=== PATIENT | female | born 1950 | race Caucasian/White ===

== ENCOUNTER 2021-12-10 22:52 | Inpatient (IN) | payer OTHER, BC ==
[~2021-12-10] VITALS: Ht 154.9 cm; Wt 79.8 kg
[2021-12-10 22:57] VITALS: BP_SYST 116
[2021-12-10] MEDS ORDERED: LORazepam 2 MG/ML VIAL IVP ONE (23:00)
--- NOTE | 2021-12-10 23:00 | NUR ---
Placed in room 5 . Placed on pathology transcriptionist, blood pressure machine and pulse oximeter. To gown for exam. Side rails up. Report given to Ivet Chand(reg).
--- NOTE | 2021-12-10 23:01 | NUR ---
JOBY Plascencia at bedside examining patient.
--- NOTE | 2021-12-10 23:08 | NUR ---
Blood for labwork drawn BY INSPECTOR [employer]. Patient tolerated.
--- NOTE | 2021-12-10 23:15 | NUR ---
PT IS A 71Y.O. FEMALE BIBA FROM [facility]. PT IS AWAKE, AGITATED YELLING UPON ARRIVAL. CONFUSED. APPROACHED PT IN A POSITIVE AND CALM MANNER BUT PT STILL AGITATED. ADMINISTERED DUE MED ORDERED, EFFECTED. W/ GIGI SINGLE LUMEN PICC LINE. SAFE & HAZARD FREE ENVIRONMENT PROVIDED. WILL CON'T TO MONITOR.
--- NOTE | 2021-12-10 23:20 | NUR ---
EKG performed at by JOBY CARNEY. Physician given copy of EKG for review.
[2021-12-10 23:34] LABS: BASOPHILS % (AUTO) 0.7 % (0.0-2.0); EOSINOPHILS % (AUTO) 0.5 % (0.0-4.0); HEMATOCRIT 26.7 % (36-48); HEMOGLOBIN 9.3 g/dL (12.0-16.0); LYMPHOCYTES # (AUTO) 0.7 K/uL (1.0-5.5); LYMPHOCYTES % (AUTO) 11.8 % (20.5-51.5); MEAN CORPUSCULAR HEMOGLOBIN 30 pg (27-31); MEAN CORPUSCULAR HGB CONC 35 % (32-36); MEAN CORPUSCULAR VOLUME 86 fL (79.0-98.0); MONOCYTES # (AUTO) 0.5 K/uL (0.0-1.0); MONOCYTES % (AUTO) 8.9 % (1.7-9.3); NEUTROPHILS # (AUTO) 4.4 K/uL (1.8-7.7); NEUTROPHILS % (AUTO) 78.1 % (40.0-70.0); PLATELET COUNT (AUTO) 214 K/uL (130-430); RED BLOOD CELL COUNT(AUTO) 3.11 MIL/uL (4.2-6.2); RED CELL DISTRIBUTION WIDTH 13.5 % (9.0-15.0); WHITE BLOOD COUNT (AUTO) 5.6 K/uL (4.8-10.8)
[2021-12-10 23:41] LABS: ANION GAP 12 (5-15); CALCIUM 10.2 mg/dL (8.4-11.0); CHLORIDE 97 mmol/L (98-107); CREATININE 2.02 mg/dL (0.55-1.30); GFR AFRICAN AMERICAN 31 mL/min (>90); GLUCOSE 172 mg/dL (70-99); POTASSIUM 4.2 mmol/L (3.5-5.1); UREA NITROGEN, BLOOD 32 mg/dL (8-21)
[2021-12-10 23:46] LABS: INR 1.1 (0.8-1.2); PROTHROMBIN TIME 11.8 SECS (9.5-12.5)
[2021-12-10 23:50] LABS: ALANINE AMINOTRANSFERASE 12 U/L (12-78); ALBUMIN 3.1 g/dL (3.4-4.8); ASPARTATE AMINOTRANSFERASE 23 U/L (10-37); TOTAL BILIRUBIN 0.6 mg/dL (0.0-1.0)
[2021-12-10 23:51] LABS: ACETAMINOPHEN < 1 ug/mL (1-30); ALCOHOL, BLOOD < 3 mg/dL (<10)
[2021-12-11] MEDS ORDERED: LORazepam 2 MG/ML VIAL IVP ONE ×2 (00:30→06:15)
[2021-12-11] MEDS ORDERED: NACL 0.9% 1,000 ML IV ONE ×2 (01:15→07:15)
--- NOTE | 2021-12-11 01:19 | NUR ---
Urine specimen collected and SENT TO LAB
[2021-12-11 01:40] LABS: BARBITURATE, URINE NEGATIVE (NEG <=200); BENZODIAZEPINE, URINE POSITIVE (NEG <=150); CANNABINOID, URINE NEGATIVE (NEG <=50); COCAINE, URINE NEGATIVE (NEG <=150); METHAMPHETAMINES SCREEN,URINE NEGATIVE (NEG <=500); OPIATE, URINE POSITIVE (NEG <=100); PHENCYCLIDINE SCREEN,URINE NEGATIVE (NEG <=25); UR TRICYCLIC ANTIDEPRESSANTS NEGATIVE (NEG <=300); URINE AMPHETAMINE NEGATIVE (NEG <=500); URINE METHADONE NEGATIVE (NEG <=200); URINE OXYCODONE SCREEN NEGATIVE (NEG <=100); URINE PROPOXYPHENE SCREEN NEGATIVE (NEG <=300)
--- NOTE | 2021-12-11 03:21 | NUR ---
PLS NOTIFY SHARATH DAUGHTER [phone] PER NEHEMIAH SALEEM [facility].
--- NOTE | 2021-12-11 03:46 | NUR ---
COVID/MRSA SWAB SENT TO LAB.
[2021-12-11] MEDS ORDERED: HYG25 PO (04:03)
[2021-12-11] MEDS ORDERED: CLON0.5T4 PO (04:03)
[2021-12-11] MEDS ORDERED: CLON-433 PO (04:03)
[2021-12-11] MEDS ORDERED: DOCU-144 PO (04:03)
[2021-12-11] MEDS ORDERED: NOR10 PO (04:03)
[2021-12-11] MEDS ORDERED: CARV25TA55 PO (04:03)
[2021-12-11] MEDS ORDERED: FERR-69 PO (04:03)
[2021-12-11] MEDS ORDERED: BUSP10TA3 PO (04:03)
[2021-12-11] MEDS ORDERED: ALPR0.5T PO (04:03)
[2021-12-11 04:40] LABS: BILIRUBIN,URINE NEGATIVE (NEGATIVE); BLOOD, URINE NEGATIVE (NEGATIVE); CLARITY/URINE CLEAR (CLEAR); GLUCOSE,URINE NEGATIVE (NEGATIVE); KETONES,URINE NEGATIVE (NEGATIVE); LEUKOCYTE ESTERASE ,URINE 1+ (NEGATIVE); NITRITE, URINE POSITIVE (NEGATIVE); PH,URINE 5.5 (5.0-8.0); PROTEIN URINE 2+ (NEGATIVE); UROBILINOGEN,URINE 0.2 (0.2-1.0)
[2021-12-11 04:42] LABS: COLOR,URINE AMBER (YELLOW)
[2021-12-11] MEDS ORDERED: GENTAMICIN 120 mg/100 mL NS 100 ML IV ONE (04:45)
[2021-12-11 05:11] LABS: BACTERIA,URINE RARE /HPF (None Seen); RBC,URINE 0-3 /HPF (0-3)
--- NOTE | 2021-12-11 05:39 | NUR ---
PT COMFORTABLY SLEEPING IN BED. SAFE & HAZARD FREE ENVIRONMENT PROVIDED. ALL FALL PRECAUTIONS IMPLEMENTED. ABLE TO TURN PT SIDE TO SIDE.
[2021-12-11] MEDS ORDERED: LORazepam 2 MG/ML VIAL ONE (06:12)
--- NOTE | 2021-12-11 06:24 | NUR ---
INCONTINENCE CARE PROVIDED.
--- NOTE | 2021-12-11 07:12 | NUR ---
REPORT GIVEN TO FRANCIS GRIMALDO
--- NOTE | 2021-12-11 07:13 | NUR ---
REPORT RECEIVED, CARE ASSUMED, PT ASSESSED
--- NOTE | 2021-12-11 07:21 | NUR ---
Admit bed requested Patient will be admitted to care of . Admitted to TELE unit. Diagnosis UTI Inpatient (Yes Observation No) Orientation concerns or request close to nursing station No) Covid Status NEG On vent or bipap NO Isolation requirements NO Needs a sitter NO From Home (Yes or if No enter name of facility) [facility] Requires Dialysis (Yes or No) NO Med Rec Completed (Yes of No) NO
--- NOTE | 2021-12-11 09:18 | NUR ---
PT SLEEPING INTERMITTENTLY, RESTLESS IN BED, DIFF WITH REDIRECTION, PT CONFUSED, RESP EASY, MM PINK, PT HAD APPARENTLY PULLED OUT ALBERTS CATH, NO OBVIOUS INJURY NO BLEEDING.
--- NOTE | 2021-12-11 09:40 | NUR ---
Patient will be admitted to care of DR VILLASEÑOR. Admitted to unit TELE. Will go to room 119. Belongings list completed. Complete and up to date summary report printed. SBAR report to be given at bedside with opportunity for questions TO GAMALIEL BLANCO.
--- NOTE | 2021-12-11 09:55 | NUR ---
Paged: Patient very agitated and combative,with orders give Haldol 3mg im once.Informed primary nurse Roshan.
[2021-12-11] MEDS ORDERED: HALOPERIDOL LACTATE 5 MG/ML VIAL IM ONE ×2 (10:00→20:15)
[2021-12-11] MEDS ORDERED: HALOPERIDOL LACTATE 5 MG/ML VIAL ONE (10:03)
--- NOTE | 2021-12-11 10:08 | NUR ---
HIGH ALERT NOTE: Called Dr. Marie back at his identified within the medical roster to verify physician authenticity.
[2021-12-11] MEDS ORDERED: DOCUSATE SODIUM 100 MG CAPSULE PO ONE (10:30)
[2021-12-11] MEDS ORDERED: DOCUSATE SODIUM 100 MG CAPSULE PO SCH (10:30)
[2021-12-11] MEDS ORDERED: busPIRone HCL 5 MG TABLET PO PRN (10:30)
[2021-12-11] MEDS ORDERED: ALPRAZolam 0.25 MG TABLET PO PRN (10:30)
--- NOTE | 2021-12-11 10:38 | NUR ---
CONSULTATION: REASON FOR CONSULT: DELIRIUM CONSULTING PHYSICIAN: TRUMAN LAZCANO ORDERED BY: ETIENNE SPOKE WITH SALLIE [phone]
[2021-12-11] MEDS ORDERED: clonazePAM 0.5 MG TABLET PO ONE (11:15)
[2021-12-11] MEDS ORDERED: CARVEDILOL 25 MG TABLET (COREG) PO ONE (11:15)
--- NOTE | 2021-12-11 11:15 | NUR ---
CONSULTATION: REASON FOR CONSULT: UTI CONSULTING PHYSICIAN: YAMINI ORDERED BY: ETIENNE SPOKE WITH NIKO [phone]
--- NOTE | 2021-12-11 11:17 | NUR ---
CONSULTATION: REASON FOR CONSULT: UTI CONSULTING PHYSICIAN: MATTHEW ORDERED BY: ETIENNE SPOKE WITH TARIQ [phone]
[2021-12-11 11:30] VITALS: BP_SYST 138
[2021-12-11 12:20] VITALS: BP_SYST 178
[2021-12-11] MEDS ORDERED: VANCOMYCIN HCL 1,000 MG in NS 250 ML IV ONE (14:00)
[2021-12-11] MEDS ORDERED: cloNIDine HCL 0.1 MG TABLET PO SCH (15:00)
[2021-12-11] MEDS: KCL 20 mEq in 0.45% NS 1000 mL 1,000 ML IV SCH (16:07)
[2021-12-11] MEDS: CEFEPIME 2 GM in D5W 100 ML IV SCH (16:09)
[2021-12-11 17:05] VITALS: BP_SYST 172
[2021-12-11] MEDS: FERROUS SULFATE 325 MG TABLET.DR PO SCH (18:00)
[2021-12-11 20:00] VITALS: BP_SYST 145
--- NOTE | 2021-12-11 20:17 | NUR ---
Patient extremely anxious, kicking staff when approaching bed yelling "I don't want it". Refsing to take PO medicatinos. Called Dr Marie, orders received.
[2021-12-11] MEDS: clonazePAM 0.5 MG TABLET PO SCH (21:00)
[2021-12-11] MEDS: DOCUSATE SODIUM 100 MG CAPSULE PO SCH (21:00)
[2021-12-11] MEDS: CARVEDILOL 25 MG TABLET (COREG) PO SCH (21:00)
[2021-12-11] MEDS: ENOXAPARIN SODIUM 30 MG/0.3 ML SYRINGE SUBCUT SCH (21:53)
[2021-12-12] VITALS: BP_SYST 189
--- NOTE | 2021-12-12 00:10 | NUR ---
Patient's BP 189/101, dr reese notified and notified of patients continued agitation and restlessness. Orders received (haldol, hydralizine)
[2021-12-12 01:00] VITALS: BP_SYST 143
[2021-12-12] MEDS ORDERED: HALOPERIDOL LACTATE 5 MG/ML VIAL IM ONE (01:00)
[2021-12-12] MEDS: hydrALAZINE HCL 20 MG/ML VIAL IVP PRN (01:34)
[2021-12-12] MEDS: KCL 20 mEq in 0.45% NS 1000 mL 1,000 ML IV SCH ×2 (01:37→10:58)
[2021-12-12 04:00] VITALS: BP_SYST 151
[2021-12-12 06:43] LABS: BASOPHILS # (AUTO) 0.1 K/uL (0.0-0.2); BASOPHILS % (AUTO) 0.9 % (0.0-2.0); EOSINOPHILS % (AUTO) 0.1 % (0.0-4.0); HEMATOCRIT 27.7 % (36-48); HEMOGLOBIN 9.7 g/dL (12.0-16.0); LYMPHOCYTES # (AUTO) 0.7 K/uL (1.0-5.5); LYMPHOCYTES % (AUTO) 10.6 % (20.5-51.5); MEAN CORPUSCULAR HEMOGLOBIN 30 pg (27-31); MEAN CORPUSCULAR HGB CONC 35 % (32-36); MEAN CORPUSCULAR VOLUME 85 fL (79.0-98.0); MONOCYTES # (AUTO) 0.4 K/uL (0.0-1.0); MONOCYTES % (AUTO) 6.6 % (1.7-9.3); NEUTROPHILS # (AUTO) 5.5 K/uL (1.8-7.7); NEUTROPHILS % (AUTO) 81.8 % (40.0-70.0); PLATELET COUNT (AUTO) 225 K/uL (130-430); RED BLOOD CELL COUNT(AUTO) 3.26 MIL/uL (4.2-6.2); RED CELL DISTRIBUTION WIDTH 13.2 % (9.0-15.0); WHITE BLOOD COUNT (AUTO) 6.8 K/uL (4.8-10.8)
[2021-12-12 07:01] LABS: CALCIUM 9.5 mg/dL (8.4-11.0); CREATININE 1.59 mg/dL (0.55-1.30); VANCOMYCIN,RANDOM 11.9 ug/mL
--- NOTE | 2021-12-12 07:20 | NUR ---
sITTER CAME OUT OF ROOM TO ALERT PATIENT APPEARED TO BE SEIZING. rAPid response called and ER MD on site to assess. Ativan ordered as pupils large but equal and patient actively seizing. Seizing appeared to be resolved as Ativan was administered. Patient placed on O2 for support. Endorsed to oncoming RN.
[2021-12-12] MEDS ORDERED: LORazepam 2 MG/ML VIAL ONE (07:35)
--- NOTE | 2021-12-12 07:45 | NUR ---
INITIAL ROUNDS Received pt resting quietly in bed with no s/s resp distress, no s/s seizure activity, no s/s pain or discomfort. IVF infusing well at ordered rate with no s/s infiltration to site. HOB elevated for aspiration precautions. Pt repositioned with pillow support and heels off-loaded for skin care and comfort. Noted dressing to left great toe clean, dry and intact. Sitter at bedside. Seizure precautions in place. Side rails up x3, bed alarm on for safety.
[2021-12-12] MEDS: FERROUS SULFATE 325 MG TABLET.DR PO SCH ×2 (08:00→18:00)
[2021-12-12 08:54] LABS: BASOPHILS % (AUTO) 0.4 % (0.0-2.0); HEMATOCRIT 28.8 % (36-48); HEMOGLOBIN 9.9 g/dL (12.0-16.0); LYMPHOCYTES # (AUTO) 0.4 K/uL (1.0-5.5); LYMPHOCYTES % (AUTO) 4.9 % (20.5-51.5); MEAN CORPUSCULAR HEMOGLOBIN 30 pg (27-31); MEAN CORPUSCULAR HGB CONC 34 % (32-36); MEAN CORPUSCULAR VOLUME 86 fL (79.0-98.0); MONOCYTES # (AUTO) 0.3 K/uL (0.0-1.0); MONOCYTES % (AUTO) 3.7 % (1.7-9.3); PLATELET COUNT (AUTO) 216 K/uL (130-430); RED BLOOD CELL COUNT(AUTO) 3.34 MIL/uL (4.2-6.2); RED CELL DISTRIBUTION WIDTH 13.2 % (9.0-15.0); WHITE BLOOD COUNT (AUTO) 7.7 K/uL (4.8-10.8)
[2021-12-12] MEDS: clonazePAM 0.5 MG TABLET PO SCH (09:00)
[2021-12-12] MEDS: DOCUSATE SODIUM 100 MG CAPSULE PO SCH ×2 (09:00→21:00)
[2021-12-12] MEDS: CARVEDILOL 25 MG TABLET (COREG) PO SCH ×2 (09:00→21:00)
[2021-12-12 09:15] LABS: CALCIUM 9.5 mg/dL (8.4-11.0); CREATININE 1.85 mg/dL (0.55-1.30); POTASSIUM 3.8 mmol/L (3.5-5.1)
[2021-12-12 09:20] LABS: ALBUMIN 2.8 g/dL (3.4-4.8); TOTAL BILIRUBIN 0.6 mg/dL (0.0-1.0)
--- NOTE | 2021-12-12 09:20 | NUR ---
CONSULT NEUROLOGY NEW SEIZURES CAROLYN DOMINGUEZ SENT TEXT MESSAGE TO DR LOW
[2021-12-12 09:23] LABS: INR 1.3 (0.8-1.2); PROTHROMBIN TIME 13.3 SECS (9.5-12.5)
[2021-12-12] MEDS: LORazepam 2 MG/ML VIAL IVP PRN (09:56)
[2021-12-12 12:04] VITALS: BP_SYST 159
[2021-12-12] MEDS: CEFEPIME 2 GM in D5W 100 ML IV SCH (12:38)
[2021-12-12] MEDS ORDERED: VANCOMYCIN HCL 750 MG in NS 250 ML IV SCH (14:00)
[2021-12-12 15:37] VITALS: BP_SYST 143
--- NOTE | 2021-12-12 19:15 | NUR ---
OPENING NOTE REPORT RECEIVED FROM DAYSHIFT NURSE. PATIENT RECEIVED LYING IN BED, EYES CLOSED. NO S/S OF ACUTE DISTRESS. BREATHING EVEN AND UNLABORED. HOB RAISED. IVF INFUSING WELL. ALBERTS ATTACHED, SECURED, AND DRAINING BY GRAVITY. SITTER AT BEDSIDE. WILL CONTINUE TO MONITOR.
--- NOTE | 2021-12-12 19:30 | NUR ---
CLOSING NOTE Pt resting in bed with no s/s resp distress, no s/s seizure activity, no s/s pain or discomfort. IVF infusing well to GIGI at ordered rate with no s/s infiltration to site. Dr. Marie here and informed that pt was unable to eat today due to confusion and biting down on the spoon-he stated he may order PPN. Dr. Marie wants to keep sitter for now. Sitter at bedside. HOB elevated for aspiration precautions. Side rails up, bed alarm on for safety.
--- NOTE | 2021-12-12 19:48 | NUR ---
TRANSFER CARE REPORT GIVEN TO DAVON. TRANSFER CARE DONE AT THIS TIME.
--- NOTE | 2021-12-12 19:48 | NUR ---
PAGED DR VILLASEÑOR AT THIS TIME
[2021-12-12 20:00] VITALS: BP_SYST 160
--- NOTE | 2021-12-12 20:02 | NUR ---
2ND PAGE FOR DR VILLASEÑOR
[2021-12-12] MEDS ORDERED: levETIRAcetam 500 MG TABLET PO SCH (21:00)
[2021-12-12] MEDS: levETIRAcetam 500 MG in NS 100 ML IV SCH (21:21)
[2021-12-12] MEDS: ENOXAPARIN SODIUM 30 MG/0.3 ML SYRINGE SUBCUT SCH (21:22)
[2021-12-13] VITALS (7 sets, daily range): BP systolic 124–180
[2021-12-13] MEDS: KCL 20 mEq in 0.45% NS 1000 mL 1,000 ML IV SCH ×3 (01:32→22:35)
[2021-12-13] MEDS ORDERED: ACETAMINOPHEN 650 MG SUPP.RECT RC PRN (02:00)
[2021-12-13 07:20] LABS: BASOPHILS # (AUTO) 0.1 K/uL (0.0-0.2); BASOPHILS % (AUTO) 0.8 % (0.0-2.0); HEMATOCRIT 27.1 % (36-48); HEMOGLOBIN 9.4 g/dL (12.0-16.0); LYMPHOCYTES % (AUTO) 14.7 % (20.5-51.5); MEAN CORPUSCULAR HEMOGLOBIN 30 pg (27-31); MEAN CORPUSCULAR HGB CONC 35 % (32-36); MEAN CORPUSCULAR VOLUME 86 fL (79.0-98.0); MONOCYTES # (AUTO) 0.9 K/uL (0.0-1.0); MONOCYTES % (AUTO) 12.8 % (1.7-9.3); NEUTROPHILS % (AUTO) 71.7 % (40.0-70.0); PLATELET COUNT (AUTO) 208 K/uL (130-430); RED BLOOD CELL COUNT(AUTO) 3.15 MIL/uL (4.2-6.2); RED CELL DISTRIBUTION WIDTH 13.2 % (9.0-15.0)
--- NOTE | 2021-12-13 07:53 | NUR ---
INITIAL ROUNDS Received pt resting quietly in bed with no s/s resp distress, no s/s seizure activity, no s/s pain or discomfort. IVF infusing well at ordered rate with no s/s infiltration to GIGI. Pt remains non-verbal today-not even mumbling this morning. HOB elevated for aspiration precautions. Pt repositioned with pillow support and heels off-loaded for skin care and comfort. Noted dressing to left great toe clean, dry and intact. Sitter at bedside. Seizure precautions in place. Side rails up x3, bed alarm on for safety. Addendum: 12/13/21 at 1026 by Briseida Metcalf RN O2 via NC removed to assess SAO2 on room air-pt placed on O2 on 12/12/21 post rapid response, pt not usually on oxygen.
[2021-12-13] MEDS: FERROUS SULFATE 325 MG TABLET.DR PO SCH ×2 (08:00→18:00)
[2021-12-13] MEDS: hydrALAZINE HCL 20 MG/ML VIAL IVP PRN (08:00)
--- NOTE | 2021-12-13 08:00 | NUR ---
ELEVATED BP/HR Pt's BP 178/107, HR 131-pt given Apresoline 10 mg IVP as ordered fro SBP > 160. Will recheck BP/HR.
[2021-12-13] MEDS: levETIRAcetam 500 MG in NS 100 ML IV SCH ×2 (08:03→22:28)
[2021-12-13] MEDS: DOCUSATE SODIUM 100 MG CAPSULE PO SCH ×2 (08:08→21:00)
[2021-12-13] MEDS: CARVEDILOL 25 MG TABLET (COREG) PO SCH ×2 (08:08→21:00)
[2021-12-13] MEDS ORDERED: *PPN PER PHARMACY XX PRN (08:30)
[2021-12-13 08:43] LABS: ALBUMIN 2.6 g/dL (3.4-4.8); CALCIUM 9.4 mg/dL (8.4-11.0); CREATININE 2.15 mg/dL (0.55-1.30); POTASSIUM 3.9 mmol/L (3.5-5.1); TOTAL BILIRUBIN 0.4 mg/dL (0.0-1.0)
--- NOTE | 2021-12-13 08:53 | NUR ---
CONSULTATION PAGED/CALLED Reason for Consultation: [] uncontrolled afib Person Who was Notified: [] STEWART Ruggiero from [facility] Consulting Physician: [] DR MCDONALD Management Department Chair Specialty: [] CARDIO Ordering Physician: [] DR CASTRO
--- NOTE | 2021-12-13 08:55 | NUR ---
BP RECHECK Rechecked pt's blood pressure and now BP 124/77, HR 105, SAO2 97% on room air.
--- NOTE | 2021-12-13 08:56 | NUR ---
OXYGEN RECHECK Pt's SAO2 97% on room air with no s/s resp distress.
--- NOTE | 2021-12-13 09:30 | NUR ---
ADJUNCT PSYCHOLOGY PROFESSOR ACSW Jie responded to a request for Social Service support from Director of Case Management Deisy and assigned FRANCIS Goins to address physician request for psych eval. ACSW attempted to engage patient at bedside. Patient was unable to have meaningful participation in Social Work contact, mental status assessment or biopsychosocial assessment can not be completed at this time. As requested by Dr. Marie, ACSW contacted Dr. Ascencio to request psych eval. ACSW also provided him brief description of patient's condition including history of dementia. ACSW provided update to FRANCIS Goins ACSW will continue to be available as needed
[2021-12-13] MEDS ORDERED: METOPROLOL TARTRATE 5 MG/5 ML VIAL IVP PRN (09:45)
[2021-12-13 10:31] LABS: PHOSPHORUS 2.6 mg/dL (2.7-4.5)
--- NOTE | 2021-12-13 13:29 | NUR ---
DRESSING CHANGE Left great toe area cleansed with normal saline, covered with a foam dressing. Healing scab to incision site of great toe amputation. Area pink/dark red, no drainage, no odor. Heel off-loaded for skin care and comfort. Pt tolerated well.
--- NOTE | 2021-12-13 19:10 | NUR ---
Dietitian Recommendations * [facility] diet, Glucerna TID (supplements yield 660kcal/day, 30g protein/day) * Consider Renal if BUN/CRE ratio elevated * Consider Cardiac if Na levels or TG elevated * Consider long-term EN support if 0% oral intake persists Please refer to nutrition assessment for details, thanks! CC, MPH, RDN
--- NOTE | 2021-12-13 19:49 | NUR ---
CLOSING NOTE Pt resting in bed with no s/s resp distress, no s/s seizure activity, no s/s pain or discomfort. IVF infusing well to GIGI at ordered rate with no s/s infiltration to site. Attempted to feed pt earlier but would not open her mouth-kept pt NPO for safety. Sitter at bedside. HOB elevated for aspiration precautions. Side rails up, bed alarm on for safety.
[2021-12-13] MEDS ORDERED: TPN PERIPHERAL 0.0001 ML, SODIUM ACETATE 40 MEQ, POTASSIUM CHLORIDE 20 MEQ, K PHOS 9 MM... IV SCH ×9 (21:00)
--- NOTE | 2021-12-13 21:40 | NUR ---
HIGH ALERT NOTE: Called Dr. MCDONALD regarding pt's HR 130 and BP 180/109. Called back at identified within the medical roster to verify physician authenticity.
[2021-12-13] MEDS: ENOXAPARIN SODIUM 30 MG/0.3 ML SYRINGE SUBCUT SCH (22:24)
[2021-12-13] MEDS: CEFTAROLINE FOSAMIL ACETATE 400 MG in NS 250 ML IV SCH (22:32)
[2021-12-14] VITALS: BP_SYST 154
[2021-12-14 01:35] LABS: BASOPHILS # (AUTO) 0.1 K/uL (0.0-0.2); EOSINOPHILS % (AUTO) 0.4 % (0.0-4.0); HEMOGLOBIN 8.6 g/dL (12.0-16.0); LYMPHOCYTES # (AUTO) 1.2 K/uL (1.0-5.5); LYMPHOCYTES % (AUTO) 17.2 % (20.5-51.5); MEAN CORPUSCULAR HEMOGLOBIN 30 pg (27-31); MEAN CORPUSCULAR HGB CONC 35 % (32-36); MEAN CORPUSCULAR VOLUME 87 fL (79.0-98.0); MONOCYTES # (AUTO) 0.9 K/uL (0.0-1.0); MONOCYTES % (AUTO) 13.1 % (1.7-9.3); NEUTROPHILS # (AUTO) 4.6 K/uL (1.8-7.7); NEUTROPHILS % (AUTO) 68.3 % (40.0-70.0); PLATELET COUNT (AUTO) 189 K/uL (130-430); RED BLOOD CELL COUNT(AUTO) 2.88 MIL/uL (4.2-6.2); RED CELL DISTRIBUTION WIDTH 13.3 % (9.0-15.0); WHITE BLOOD COUNT (AUTO) 6.7 K/uL (4.8-10.8)
[2021-12-14 01:56] LABS: ALBUMIN 2.3 g/dL (3.4-4.8); CREATININE 1.7 mg/dL (0.55-1.30); PHOSPHORUS 2.4 mg/dL (2.7-4.5); POTASSIUM 3.9 mmol/L (3.5-5.1); TOTAL BILIRUBIN 0.3 mg/dL (0.0-1.0)
[2021-12-14 08:00] VITALS: BP_SYST 144
[2021-12-14] MEDS: FERROUS SULFATE 325 MG TABLET.DR PO SCH ×2 (08:00→12:21)
--- NOTE | 2021-12-14 08:13 | NUR ---
CONSULTATION PAGED0= REASON FOR CONSULTATION:DELIRIUM WAS CONSULT CALLED?Y PERSON WHO WAS NOTIFIED:SKY CONSULTING PHYSICIAN:TRUMAN LOPEZ SCRUM COACH SPECIALTY:PSYCHE SCRUM COACH PHONE NUMBER:[phone] REQUESTING PHYSICIAN:BLACK HAAS
--- NOTE | 2021-12-14 08:15 | NUR ---
TEFLARO IV ANTIBIOTIC NOT ADMINISTERED First dose of Teflaro (ceftaroline) IV antibiotic was due at 2100 on 12/13/21. It was NOT administered d/t concerns of patients history of allergic reaction to cephalexin. Both antibiotics are cephalosporins. *Additionally, CEFTAROLINE's side effects and conditions to be reported to MD when considering this antibiotic were too many to overlook. SIDE EFFECTS/PREEXISTING CONDITIONS: SEIZURES (HAD SEIZURE CKD (BUN 26/CREATININE 1.7), IRREGULAR HR (PT AFIB W/ HR SUSTAINING LOW BLOOD COUNT (PT HAS CHRONIC ANEMIA LOW POTASSIUM, CONFUSION,
[2021-12-14] MEDS: DOCUSATE SODIUM 100 MG CAPSULE PO SCH (09:00)
[2021-12-14] MEDS: levETIRAcetam 500 MG in NS 100 ML IV SCH ×2 (09:00→21:59)
[2021-12-14] MEDS: CARVEDILOL 25 MG TABLET (COREG) PO SCH ×2 (09:00→22:04)
[2021-12-14] MEDS: CEFTAROLINE FOSAMIL ACETATE 400 MG in NS 250 ML IV SCH ×2 (11:07→22:02)
[2021-12-14] MEDS: KCL 20 mEq in 0.45% NS 1000 mL 1,000 ML IV SCH ×2 (11:45→22:05)
[2021-12-14 12:34] VITALS: BP_SYST 128
--- NOTE | 2021-12-14 12:45 | NUR ---
Nutrition F/U Admitting Diagnosis UTI Reviewed Pertinent Medical/Surgical Hx Medical Record Patient Primary RN Medical History Comment: PMH: HTN, dementia, L foot osteomyelitis, T2DM, CKD Stg IV w/o CRRT, GERD, esophagitis, general anxiety, and seizure disorder per physician notes Per EMR review 12/14: pt also found w/ ALOC, etiology uncertain, may be r/t meds, catatonia Subjective Information: RD spoke w/ pt's primary RN this afternoon. She reported that pt appears to be high aspiration precaution d/t ALOC and has not eaten today. She also reported that pt has a psych consult and may need a swallow eval as well. Per EMR review, pt continues w/ negligible PO intakes; no BM noted yet; pt started PPN support last night; non-verbal. RD visited pt at bedside. No family present. PPN seen infusing at 42 ml/hr w/ plan to advance to 50 ml/hr per EMR review. Pt is not yet meeting optimal nutritional needs. Current Diet Order/Nutrition Support: CCHO x3 days & PPN D20%, AA8.5% at 50 ml/hr via peripheral line Patient/Significant Other Unable To Verbalize Education Provided Not Indicated Pertinent Medications: lopressor, lovenox Pertinent Labs: Na 135 L, BG 191 H, BUN 26 H, CRE 1.7 H, eGFR 32 L, TG 155 H, WBC 6.7 WNL Height (Feet) 5 feet Height (Inches) 1.00 inches Weight (Pounds) 176 pounds -- stable since 12/13 Patient Weight 79.832 kg Body Mass Index 33.25 kg/m2 %IBW 168 [place]/Adjusted Body Weight 105lbs/47.7kg IBW. Weight Status Obese Gastrointestinal Symptoms None Skin Integrity Comment: Mike Score: 11 -- L big toe amputation/incision per EMR review Current % PO Negligible <25% Estimated Energy Expenditure (kcals/day) 6765-6101 (25-30kcal/kg IBW d/t obesity, GERIAT maintenance) NEW Estimated Protein Required (g/day) 38-57 (0.8-1.2 g/kg IBW d/t obesity, CKD Stage 4 no CRRT) Estimated Fluid Required (l/day) Defer to MD d/t CKD Stage 4 Problem/Etiology/Signs/Symptoms Inadequate oral intake R/T suspected self-feeding difficulty d/t mental status AEB average PO intake of 0%. *Ongoing Expected Outcomes/Goals Monitor appetite and PO intakes w/ goal of meeting >50 estimated nutritional needs, labs trending WNL, normal GI function, and skin integrity/wt maintenance. Dietitian Recommendations * PPN D20%, AA8.5% at 65 ml/hr (goal), IL20% at 5 ml/hr via peripheral line Provides: 1036 kcal/day, 66 gm protein/day, 1680 ml total volume/day, and GIR: 1.4 gm CHO/kg/min Meets: 87% of lower end of estimated caloric needs and 116% of upper end of estimated protein needs * Consider ST swallow eval and NPO status * Consider need for long-term EN if PO intake continues not indicated Follow Up High Risk: F/U in 2-3 days
--- NOTE | 2021-12-14 12:50 | NUR ---
Dietitian Recommendations * PPN D20%, AA8.5% at 65 ml/hr (goal), IL20% at 5 ml/hr via peripheral line Provides: 1036 kcal/day, 66 gm protein/day, 1680 ml total volume/day, and GIR: 1.4 gm CHO/kg/min Meets: 87% of lower end of estimated caloric needs and 116% of upper end of estimated protein needs * Consider ST swallow eval and NPO status * Consider need for long-term EN if PO intake continues not indicated LP, MS, RD Please refer to Nutrition F/U for details.
[2021-12-14 16:26] VITALS: BP_SYST 141
--- NOTE | 2021-12-14 19:34 | NUR ---
Patient to stay one more night to follow up on lab's and PT evaluation. Urine sent for strong smell and dark color. UA an C&S sent.Also IV fluids started as well at 75cc hr for low UOP and dark urine. Daughter came to see patient updated on condition. Appetite poor but patient states she is full after meal's
[2021-12-14 20:00] VITALS: BP_SYST 152
--- NOTE | 2021-12-14 20:05 | NUR ---
Patient awoken at end of shift around 18:00. still confused does not offer much in communication. Able to say a few words. Both attending and infectious disease Doctor's here at end of shift.Plan of care to continue with IV antibiotic's and medication's as tolerable. Changed diet to puree diet with aspiration precaution's. Spoke with this morning family here presently. Patient more responsive to family member's and seem's to continue to be more alert for now. Updated family in condition very caring family. to be coming tomorrow.
[2021-12-14] MEDS ORDERED: POTASSIUM CHLORIDE IV SCH ×9 (21:00)
[2021-12-14] MEDS ORDERED: TPN PERIPHERAL IV SCH ×9 (21:00)
[2021-12-14] MEDS ORDERED: SODIUM ACETATE IV SCH ×9 (21:00)
[2021-12-14] MEDS ORDERED: [UNRECOGNIZED DRUG - OTHER] IV SCH ×9 (21:00)
[2021-12-14] MEDS: ENOXAPARIN SODIUM 30 MG/0.3 ML SYRINGE SUBCUT SCH (22:03)
[2021-12-14] MEDS: LORazepam 2 MG/ML VIAL IVP PRN (22:56)
[2021-12-15 07:07] LABS: ALBUMIN 2.1 g/dL (3.4-4.8); CALCIUM 8.1 mg/dL (8.4-11.0); CREATININE 1.72 mg/dL (0.55-1.30); PHOSPHORUS 2.3 mg/dL (2.7-4.5); POTASSIUM 4.2 mmol/L (3.5-5.1); TOTAL BILIRUBIN 0.3 mg/dL (0.0-1.0)
[2021-12-15 08:00] VITALS: BP_SYST 164
--- NOTE | 2021-12-15 08:20 | NUR ---
Initial Notes Patient is awake. Aox3 to name, , and place. Patient confused. No s.s of distress noted. Breathing is even and nonlabored, on room air. No SOB noted. Patient denies pain. IVF running. IV patent. Vital signs obtained, as documented. HOB elevated. Assisted patient with breakfast. Patient tolerated well. Bed locked, alarm on, and at lowest position. Call light within reach. Padding in place and sitter at bedside.
[2021-12-15] MEDS: levETIRAcetam 500 MG in NS 100 ML IV SCH (09:10)
[2021-12-15] MEDS: CEFTAROLINE FOSAMIL ACETATE 400 MG in NS 250 ML IV SCH ×2 (09:12→21:23)
[2021-12-15] MEDS: KCL 20 mEq in 0.45% NS 1000 mL 1,000 ML IV SCH (09:13)
[2021-12-15] MEDS ORDERED: NACL 0.9% 1,000 ML IV SCH (09:15)
[2021-12-15] MEDS: CARVEDILOL 25 MG TABLET (COREG) PO SCH ×2 (09:34→21:26)
[2021-12-15] MEDS: FERROUS SULFATE 325 MG TABLET.DR PO SCH ×2 (09:35→17:48)
[2021-12-15] MEDS: DOCUSATE SODIUM 100 MG CAPSULE PO SCH ×2 (09:35→21:24)
[2021-12-15 12:00] VITALS: BP_SYST 127
--- NOTE | 2021-12-15 12:00 | NUR ---
Notes Patient has been cleaned and repositioned. HOB elevated, assisted patient with feeding. Tolerated lunch well. No distress noted. PPN and IVF running. Patient denies pain. Dr. Marie came to see patient. Seizure precautions in place. Bed locked, alarm on, and at lowest position. Sitter in place. Call light within reach.
[2021-12-15] MEDS: INSULIN REGULAR, HUMAN 100 UNITS/ML, 3 ML VIAL (humuLIN R) SUBCUT PRN ×3 (12:36→21:34)
[2021-12-15] MEDS ORDERED: ANUSOL 1 EA SUPP.RECT (PREPARATION H) RC ONE (13:30)
[2021-12-15] MEDS ORDERED: PHENYLEPH/MINERAL OIL/PETROLAT 57 GM OINT.APPL TP PRN (13:30)
[2021-12-15] MEDS ORDERED: amLODIPine BESYLATE 10 MG TABLET PO ONE (14:00)
[2021-12-15] MEDS ORDERED: BISACODYL 10 MG/SUPPOSITORY RC PRN (14:15)
[2021-12-15] MEDS ORDERED: ANUSOL 1 EA SUPP.RECT (PREPARATION H) RC PRN (14:15)
--- NOTE | 2021-12-15 15:04 | NUR ---
Discharge Planning: DCP faxed pt referral to [facility] [phone] and [place] [phone]. DCP to follow up Addendum: 12/15/21 at 1609 by Ramya Valdez DP [place] [phone] accepted pt to Rm 4 DCP made CM aware.
--- NOTE | 2021-12-15 16:24 | NUR ---
Notes Patient is awake. Patient is pulling on IV tubing and on Vizcaino Cath. Sitter present. Distracted patient by putting TV on. No s.s of distress noted. NO SOB. Patient denies pain. Seizure and fall precautions in place and call light within reach. Sitter present.
[2021-12-15 16:55] VITALS: BP_SYST 170
--- NOTE | 2021-12-15 17:20 | NUR ---
ATTENDING MD DR VILLASEÑOR WAS PAGED, RE: HIGH BP.
[2021-12-15 18:11] VITALS: BP_SYST 177
[2021-12-15] MEDS: hydrALAZINE HCL 20 MG/ML VIAL IVP PRN (18:12)
--- NOTE | 2021-12-15 18:52 | NUR ---
CLOSING NOTES DR. VILLASEÑOR CALLED, NEW ORDERS RECEIVED. BP WAS ELEVATED 170/ 84, HR 85 BPM. RN ADMINISTERED HYDRALAZINE 10 MG IVP. BP IS NOW 153/ 84 AND HR 110 BPM (RADIAL PULSE). PATIENT DENIES PAIN. PATIENT IS WATCHING TV, ASSISTED WITH FEEDING DINNER. NO S.S OF DISTRESS NOTED. BREATHING IS EVEN AND NONLABORED, ON ROOM AIR. NO SOB NOTED. IVF AND PPN RUNNING. IV PATENT. F/C DRAINING BY GRAVITY. ALL NEEDS MET. BED LOCKED, ALARM ON, AND AT LOWEST POSITION. SEIZURE PRECAUTIONS IN PLACE. CALL LIGHT WITHIN REACH. SITTER PRESENT.
[2021-12-15 20:00] VITALS: BP_SYST 159
--- NOTE | 2021-12-15 20:00 | NUR ---
OPENING Patient resting in bed, unlabored breathing on room air. PPN infusing per order. Vizcaino catheter patent draining yellow urine. Patient confused. Call light in reach, bed low and locked.
[2021-12-15] MEDS ORDERED: levETIRAcetam 500 MG TABLET PO SCH (21:00)
[2021-12-15] MEDS ORDERED: [UNRECOGNIZED DRUG - OTHER] IV SCH ×9 (21:00)
[2021-12-15] MEDS ORDERED: TPN PERIPHERAL IV SCH ×9 (21:00)
[2021-12-15] MEDS ORDERED: POTASSIUM CHLORIDE IV SCH ×9 (21:00)
[2021-12-15] MEDS ORDERED: SODIUM ACETATE IV SCH ×9 (21:00)
[2021-12-15] MEDS: levETIRAcetam 500 MG TABLET PO SCH (21:24)
[2021-12-15] MEDS: MEGESTROL ACETATE 400 MG/10 ML UDC PO SCH (21:24)
[2021-12-15] MEDS: ENOXAPARIN SODIUM 30 MG/0.3 ML SYRINGE SUBCUT SCH (21:24)
[2021-12-15] MEDS: hydrALAZINE HCL 25 MG TABLET PO SCH (21:26)
[2021-12-15 23:33] VITALS: BP_SYST 142
[2021-12-16] VITALS: BP_SYST 142; BP_SYST 145
[2021-12-16] MEDS: INSULIN REGULAR, HUMAN 100 UNITS/ML, 3 ML VIAL (humuLIN R) SUBCUT PRN ×4 (06:56→21:06)
--- NOTE | 2021-12-16 07:08 | NUR ---
CLOSING Patient resting in bed, unlabored breathing on room air. Given 2 units insulin this morning. Patient remains confused, sometimes responding appropriately to questions but also talking to people not in room. AOx1. Occasionally pulled at lines, removed gown, and attempted to get out of bed. Sitter at bedside. Call light in reach, seizure and safety precautions maintained.
[2021-12-16 07:20] LABS: ALBUMIN 2.1 g/dL (3.4-4.8); CALCIUM 8.7 mg/dL (8.4-11.0); CREATININE 1.63 mg/dL (0.55-1.30); PHOSPHORUS 2.7 mg/dL (2.7-4.5); POTASSIUM 4.1 mmol/L (3.5-5.1); TOTAL BILIRUBIN 0.1 mg/dL (0.0-1.0)
[2021-12-16 08:00] VITALS: BP_SYST 167
--- NOTE | 2021-12-16 08:00 | NUR ---
Initial Notes Patient AOx3. Confused. No s.s of distress noted. Breathing is even and nonlabored, on room air. No SOB noted. Vital signs obtained, as documented. PPN running. Midline and IV patent. Patient denies pain. HOB elevated. Patient eating breakfast with assist. Bed locked, alarm on, and at lowest position. Call light within reach. Sitter present. Addendum: 12/16/21 at 1649 by Esther Trevizo LVN Patient AOx3. Confused. No s.s of distress noted. Breathing is even and nonlabored, on room air. No SOB noted. Vital signs obtained, as documented. PPN running. Midline and IV patent. Patient denies pain. HOB elevated. Patient eating breakfast with assist. F/ C draining by gravity. Bed locked, alarm on, and at lowest position. Call light within reach. Sitter present
[2021-12-16] MEDS: DOCUSATE SODIUM 100 MG CAPSULE PO SCH ×2 (08:39→20:25)
[2021-12-16] MEDS: MEGESTROL ACETATE 400 MG/10 ML UDC PO SCH ×2 (08:39→20:24)
[2021-12-16] MEDS: FERROUS SULFATE 325 MG TABLET.DR PO SCH ×2 (08:39→17:02)
[2021-12-16] MEDS: amLODIPine BESYLATE 10 MG TABLET PO SCH (08:41)
[2021-12-16] MEDS: CARVEDILOL 25 MG TABLET (COREG) PO SCH ×2 (08:41→20:24)
[2021-12-16] MEDS: levETIRAcetam 500 MG TABLET PO SCH ×2 (08:42→20:24)
[2021-12-16] MEDS: hydrALAZINE HCL 25 MG TABLET PO SCH ×2 (08:42→20:25)
[2021-12-16] MEDS: CEFTAROLINE FOSAMIL ACETATE 400 MG in NS 250 ML IV SCH ×2 (08:56→21:31)
--- NOTE | 2021-12-16 10:30 | NUR ---
Notes Patient has been cleaned and reposition. Linens changed. No s.s of distress noted. Patient denies pain. Safety precautions in place and call light within reach.
[2021-12-16 12:00] VITALS: BP_SYST 131
--- NOTE | 2021-12-16 13:00 | NUR ---
Notes Patient ate lunch. Tolerated regular food. Patient ate less than 25%. A few bites of the protein and all the fruit. Encourage and assisted the patient to eat some more. Patient stated she was full and had enough. No s.s of aspiration noted. Patient denies pain. No distress noted. Bed locked, alarm on, and at lowest position. Seizure precautions in place and call light within reach.
--- NOTE | 2021-12-16 15:00 | NUR ---
Notes Patient tried to get out of bed, stating needing to go to physical therapy. Reoriented patient back to reality. Patient very confused and becoming agitated. Granddaughter at bedside. Bed at lowest position, alarm on, and locked. Call light within reach.
[2021-12-16 16:00] VITALS: BP_SYST 179
--- NOTE | 2021-12-16 16:23 | NUR ---
Notes Patient is resting, eyes open. Confused. No ss of distress noted. NO SOB. Patient denies pain. Safety precautions in place and call light within reach. Sitter present.
[2021-12-16] MEDS: hydrALAZINE HCL 20 MG/ML VIAL IVP PRN (17:16)
--- NOTE | 2021-12-16 17:36 | NUR ---
Notes Patient states seeing spiders on the wall. Patient is calm, very confused. keeps trying to get gown and blankets off. Patient calling for Mr. Vraner and to
--- NOTE | 2021-12-16 19:05 | NUR ---
Closing Notes Patient is confused. States wants to go to the other room to eat. Reoriented to reality/ location and educated patient on safety. Assisted patient with feeding. Patient becoming agitated and has stated that does not want to eat now. Patient drinking some Ensure. No s.s of distress noted. Breathing is even and nonlabored, on room air. PPN running, midline patent. Vizcaino cath draining by gravity. Patient denies pain. All needs met. Bed locked, alarm on, and at lowest position. Call light within reach. Endorsed care to Alexandro CERNA.
--- NOTE | 2021-12-16 19:25 | NUR ---
OPENING NOTE PT IS SITTING IN BED WITH EYES OPEN. NO APPARENT SIGNS OF DISTRESS NOTED AT THIS TIME. PT IS TALKING TO "MARSHALL" AND ASKING ABOUT CATS AND BABIES. PT IS A/O X 2. BED IS IN LOWEST POSITION WITH FALL AND SAFETY PRECAUTIONS IN PLACE. SITTER PRESENT. IV FLUIDS RUNNING ORDERED.
[2021-12-16 20:00] VITALS: BP_SYST 145
[2021-12-16] MEDS: ENOXAPARIN SODIUM 30 MG/0.3 ML SYRINGE SUBCUT SCH (20:24)
[2021-12-16] MEDS: ACETAMINOPHEN 325 MG TABLET PO PRN (20:52)
[2021-12-16] MEDS ORDERED: POTASSIUM CHLORIDE IV SCH ×9 (21:00)
[2021-12-16] MEDS ORDERED: TPN PERIPHERAL IV SCH ×9 (21:00)
[2021-12-16] MEDS ORDERED: SODIUM ACETATE IV SCH ×9 (21:00)
[2021-12-16] MEDS ORDERED: [UNRECOGNIZED DRUG - OTHER] IV SCH ×9 (21:00)
--- NOTE | 2021-12-16 21:30 | NUR ---
PT SPILLED CRUSHED MEDS ON SELF AND BED, NO MEDS MADE IT INTO MOUTH. MEDICATIONS WERE PULLED AGAIN AND READMINISTERED
--- NOTE | 2021-12-16 22:06 | NUR ---
DR VILLASEÑOR BEDSIDE NURSE UPDATED ON CONDITION. STATED PT CAN GO BACK TO SNF TOMORROW
--- NOTE | 2021-12-17 | NUR ---
ROUNDS PT IS LYING IN BED WITH EYES CLOSED. NO APPARENT SIGNS OF DISTRESS NOTES AT THIS TIME. BED IS IN LOWEST POSITION WITH FALL AND SAFETY PRECAUTIONS IN PLACE. SITTER PRESENT. IV FLUIDS RUNNING ORDERED
[2021-12-17 01:30] VITALS: BP_SYST 168
[2021-12-17] MEDS: INSULIN REGULAR, HUMAN 100 UNITS/ML, 3 ML VIAL (humuLIN R) SUBCUT PRN ×3 (06:03→21:39)
--- NOTE | 2021-12-17 06:33 | NUR ---
CLOSING NOTE PT IS LYING IN BED WITH EYES CLOSED. NO APPARENT DISTRESS NOTED AT THIS TIME. BED IN LOWEST POSITION WITH FALL AND SAFETY PRECAUTIONS IN PLACE. SITTER PRESENT. IV FLUIDS RUNNING ORDERED. ALBERTS DRAINING TO GRAVITY.
[2021-12-17 07:30] LABS: CALCIUM 8.6 mg/dL (8.4-11.0); CREATININE 1.57 mg/dL (0.55-1.30); PHOSPHORUS 3.6 mg/dL (2.7-4.5); POTASSIUM 4.1 mmol/L (3.5-5.1); TOTAL BILIRUBIN 0.1 mg/dL (0.0-1.0)
[2021-12-17 07:52] VITALS: BP_SYST 189
--- NOTE | 2021-12-17 08:00 | NUR ---
AM ASSESSMENT PT AWAKENED TO VERBAL COMMAND, VITAL SIGNS TAKEN, BP 189/86, BREAKFAST TRAY PLACED ON THE TABLE AND MOVED TO PATIENT'S REACH. ALL DUE MEDS GIVEN.
[2021-12-17] MEDS: FERROUS SULFATE 325 MG TABLET.DR PO SCH ×2 (08:04→18:00)
[2021-12-17] MEDS: hydrALAZINE HCL 25 MG TABLET PO SCH ×2 (08:05→22:00)
[2021-12-17] MEDS: DOCUSATE SODIUM 100 MG CAPSULE PO SCH ×2 (08:05→21:46)
[2021-12-17] MEDS: CEFTAROLINE FOSAMIL ACETATE 400 MG in NS 250 ML IV SCH ×2 (08:06→21:55)
[2021-12-17] MEDS: MEGESTROL ACETATE 400 MG/10 ML UDC PO SCH ×2 (08:06→21:47)
[2021-12-17] MEDS: CARVEDILOL 25 MG TABLET (COREG) PO SCH ×2 (08:06→21:59)
[2021-12-17] MEDS: levETIRAcetam 500 MG TABLET PO SCH ×2 (08:06→21:46)
[2021-12-17] MEDS: amLODIPine BESYLATE 10 MG TABLET PO SCH (08:06)
[2021-12-17 08:45] LABS: BASOPHILS % (AUTO) 0.8 % (0.0-2.0); EOSINOPHILS % (AUTO) 0.6 % (0.0-4.0); HEMATOCRIT 23.1 % (36-48); HEMOGLOBIN 8.2 g/dL (12.0-16.0); LYMPHOCYTES # (AUTO) 0.9 K/uL (1.0-5.5); LYMPHOCYTES % (AUTO) 19.7 % (20.5-51.5); MEAN CORPUSCULAR HEMOGLOBIN 30 pg (27-31); MEAN CORPUSCULAR HGB CONC 36 % (32-36); MEAN CORPUSCULAR VOLUME 86 fL (79.0-98.0); MONOCYTES # (AUTO) 0.6 K/uL (0.0-1.0); MONOCYTES % (AUTO) 12.6 % (1.7-9.3); NEUTROPHILS # (AUTO) 3.1 K/uL (1.8-7.7); NEUTROPHILS % (AUTO) 66.3 % (40.0-70.0); PLATELET COUNT (AUTO) 165 K/uL (130-430); WHITE BLOOD COUNT (AUTO) 4.6 K/uL (4.8-10.8)
--- NOTE | 2021-12-17 09:00 | NUR ---
Alexei.I PT ASKED TO BE TAKEN TO THE BATHROOM. WEAKNESS TO LOWER EXTREMITIES NOTED. OFFERED A BEDPAN. PT DECLINED. BROUGHT IN A BEDSIDE COMMODE. SLOWLY BRINGS HERSELF TO THE EDGE OF HER BED WITH STAFF AT BEDSIDE.
--- NOTE | 2021-12-17 09:15 | NUR ---
ACTIVITY PT HAD A BOWEL MOVEMENT.GOOD PERINEAL CARE PROVIDED. ASSIST REQUIRED IN GOING BACK TO THE BED.
[2021-12-17 12:00] VITALS: BP_SYST 114
[2021-12-17] MEDS ORDERED: hydrALAZINE HCL 25 MG TABLET PO ONE (12:00)
--- NOTE | 2021-12-17 14:45 | NUR ---
FAMILY PT'S DAUGHTER AND HER GRANDDAUGHTER IN THE ROOM. RAISED THEIR CONCERN ON POSSIBILITY OF PT'S RELEASE TO [facility] TODAY. THEY WOULD NOT WELCOME ON SENDING THE PATIENT TO ANOTHER FACILITY.
[2021-12-17 15:17] VITALS: BP_SYST 132
--- NOTE | 2021-12-17 15:30 | NUR ---
ALBERTS CATHETER DISCONTINUED ORDERED BY .
--- NOTE | 2021-12-17 16:15 | NUR ---
[facility]ME PYLE RN. [facility] WILL TAKE PATIENT TODAY. PHONE NUMBER TO GIVE REPORT [phone]. CALLED MEDIC 1 17:30PM
--- NOTE | 2021-12-17 16:42 | NUR ---
REPORT CALLED MELANIE RODRIGUEZ, SPOKE TO NEHEMIAH PYLE.
[2021-12-17 16:43] VITALS: BP_SYST 132
[2021-12-17] MEDS: hydrALAZINE HCL 20 MG/ML VIAL IVP PRN (17:43)
--- NOTE | 2021-12-17 17:43 | NUR ---
ELEV BP MEDIC 1 AMBULANCE CREW IN THE ROOM, PATIENT ANXIOUS, ASKING FOR HER PURSE. BLOOD PRESSURE READING 177/89, AMBULANCE CALLED UP THEIR DISPATCH TO NOTIFY THE BP READING. MEDICATED PT WITH APRESOLINE 10 MG IVP.
--- NOTE | 2021-12-17 18:00 | NUR ---
BP READING 172/82, AMBULANCE LEFT AND WILL GIVE A CALL ONCE THE PATIENT'S BP BECOMES LOWER THAN 160.
--- NOTE | 2021-12-17 19:15 | NUR ---
OPENING NOTE PT IS SITTING UP IN BED WITH EYES OPEN. PT IS CONFUSED AND TALKING TO PEOPLE THAT AREN'T THERE. NO APPARENT DISTRESS NOTED AT THIS TIME. BED IS IN LOWEST POSITION WITH FALL AND SAFETY PRECAUTIONS IN PLACE. CALL LIGHT IS WITHIN REACH.
[2021-12-17 20:00] VITALS: BP_SYST 138
[2021-12-17] MEDS ORDERED: POTASSIUM CHLORIDE IV SCH ×9 (21:00)
[2021-12-17] MEDS ORDERED: [UNRECOGNIZED DRUG - OTHER] IV SCH ×9 (21:00)
[2021-12-17] MEDS ORDERED: TPN PERIPHERAL IV SCH ×9 (21:00)
[2021-12-17] MEDS ORDERED: SODIUM ACETATE IV SCH ×9 (21:00)
[2021-12-17] MEDS: ENOXAPARIN SODIUM 30 MG/0.3 ML SYRINGE SUBCUT SCH (21:47)
--- NOTE | 2021-12-17 23:40 | NUR ---
ROUNDS PT IS SITTING UP IN BED WITH EYES OPEN. PT STILL CONFUSED AND IS MILDLY ANXIOUS. PT CLEANED AND REPOSITIONED. PUREWICK PLACED AND EXPLAINED TO THE PT
[2021-12-18 00:43] VITALS: BP_SYST 176
--- NOTE | 2021-12-18 02:50 | NUR ---
ROUNDS PT AWAKE COMPLAINING OF A HEADACHE, NURSE ADMINISTERED PRN MEDICATION. PT CLEANED AND REPOSITIONED. ALL NEEDS MET AT THIS TIME.
[2021-12-18] MEDS: ACETAMINOPHEN 325 MG TABLET PO PRN (02:53)
--- NOTE | 2021-12-18 06:45 | NUR ---
CLOSING NOTE PT IS LYING IN BED WITH EYES OPEN. NO APPARENT SIGNS OF DISTRESS NOTED AT HIS TIME. BED IN LOWEST POSITION WITH FALL AND SAFETY PRECAUTIONS IN PLACE. CALL LIGHT WITHIN REACH. ALL NEEDS MET AT THIS TIME.
[2021-12-18 08:00] VITALS: BP_SYST 149
[2021-12-18] MEDS: MEGESTROL ACETATE 400 MG/10 ML UDC PO SCH (09:40)
[2021-12-18] MEDS: hydrALAZINE HCL 25 MG TABLET PO SCH (09:40)
[2021-12-18] MEDS: FERROUS SULFATE 325 MG TABLET.DR PO SCH (09:40)
[2021-12-18] MEDS: CARVEDILOL 25 MG TABLET (COREG) PO SCH (09:40)
[2021-12-18] MEDS: amLODIPine BESYLATE 10 MG TABLET PO SCH (09:41)
[2021-12-18] MEDS: DOCUSATE SODIUM 100 MG CAPSULE PO SCH (09:46)
[2021-12-18] MEDS: levETIRAcetam 500 MG TABLET PO SCH (09:46)
[2021-12-18] MEDS: CEFTAROLINE FOSAMIL ACETATE 400 MG in NS 250 ML IV SCH (09:47)
--- NOTE | 2021-12-18 09:59 | NUR ---
Discharge Planning: DCP arranged transport with [facility] [phone] BLS 11:00am to [facility] [phone]. Patient packet taken to nurse station nurse aware.
[2021-12-18 11:10] VITALS: BP_SYST 149
--- NOTE | 2021-12-18 11:20 | NUR ---
Report given to RN at [facility]. Patient transferred via [facility].
--- NOTE | 2021-12-18 11:28 | NUR ---
Notified patient's family about transfer to [facility].
--- NOTE | 2021-12-18 11:28 | NUR ---
Patient ready for discharge. All paperwork and instructions given. Patient aware of transfer and signed paperwork. Patient's family member made aware of transfer. Patient denies having any belongings bags. Patient has right arm PICC noted and explained to ambulance that facility knows about line. No distress noted.
== END 2021-12-18 11:28 | DRG 640 ==
LOC: SED 22:52 → STU 12-11 07:11 → SMU 12-17 09:43
PROVIDERS: ADMIT Family Medicine; ATTEND Family Medicine
PROC: 4A00X4Z Measurement of Central Nervous Electrical Activity, External Approach (ICD-10-PCS; principal; 2021-12-13)
DX: E86.0 Dehydration (principal); G93.41 Metabolic encephalopathy; N39.0 Urinary tract infection, site not specified; F03.94 Unspecified dementia, unspecified severity, with anxiety; N17.9 Acute kidney failure, unspecified; F13.20 Sedative, hypnotic or anxiolytic dependence, uncomplicated; I13.0 Hypertensive heart and chronic kidney disease with heart failure and stage 1 through stage 4 chronic kidney disease, or unspecified chronic kidney disease; M86.9 Osteomyelitis, unspecified; Z20.822 Contact with and (suspected) exposure to COVID-19; F41.1 Generalized anxiety disorder; K21.00 Gastro-esophageal reflux disease with esophagitis, without bleeding; E11.22 Type 2 diabetes mellitus with diabetic chronic kidney disease; N18.9 Chronic kidney disease, unspecified; I50.9 Heart failure, unspecified; I48.0 Paroxysmal atrial fibrillation; D64.9 Anemia, unspecified; Z88.1 Allergy status to other antibiotic agents
CPT/HCPCS: 36415; 70450-TC; 71045; 76376; 76770; 80048; 80053; 80202; 80307; 81000; 82962; 83605; 83735; 83880; 84100; 84478; 84484; 85025; 85610-TC; 85651-TC; 85730-TC; 86140; 87040; 87081; 87086; 93005; 93306; 95816; 96365; 96375; 96376; 97110-GP; 97530-GP; 99285; G0378; G0480; G0481; G0482; J0360; J0692; J0712; J1580; J1630; J1650; J1815; J1953; J2060; J3370; J3475; J3480; J3490; J7030; J7050; J7060